=== PATIENT | female | born 1945 | race Caucasian/White ===

== ENCOUNTER 2016-10-14 21:44 | Inpatient (IN) | payer MEDICARE, OTHER ==
[~2016-10-14] VITALS: Ht 152.4 cm; Wt 35.6 kg
[2016-10-14 22:41] LABS: HEMATOCRIT 44.1 % (34.6-47.8); HEMOGLOBIN 14.5 g/dL (11.7-16.4)
[2016-10-14 22:51] LABS: DAU SCREEN DISCLAIMER
[2016-10-14 22:54] LABS: ASPARTATE AMINO TRANSFERASE 14 U/L (15-37); BLOOD UREA NITROGEN 18 mg/dL (7-18)
[2016-10-15] MEDS ORDERED: hydrALAzine 20 MG/ML, 1ML IVPush PRN (01:00)
[2016-10-15] MEDS ORDERED: ACETAMINOPHEN 325 MG TABLET PO PRN (01:00)
[2016-10-15] MEDS: NS + 20MEQ KCL 1,000 ML IV SCH ×2 (04:20→16:01)
[2016-10-15 06:11] LABS: HEMATOCRIT 35.7 % (34.6-47.8); HEMOGLOBIN 11.9 g/dL (11.7-16.4); WHITE BLOOD COUNT 8.2 x10^3/uL (3.4-10)
[2016-10-15 06:15] LABS: BLOOD UREA NITROGEN 16 mg/dL (7-18)
[2016-10-15] MEDS: ENOXAPARIN 40 MG/0.4 ML SQ SCH (07:47)
[2016-10-15 07:52] VITALS: BP 149/79
[2016-10-15 12:48] VITALS: BP 155/73
[2016-10-15 20:04] VITALS: BP 175/89
[2016-10-15 21:00] VITALS: BP 175/88
[2016-10-15 22:34] VITALS: BP 146/84
[2016-10-16 02:47] VITALS: BP 152/83
[2016-10-16 05:36] LABS: HEMATOCRIT 38.5 % (34.6-47.8); HEMOGLOBIN 12.9 g/dL (11.7-16.4)
[2016-10-16 05:41] LABS: BLOOD UREA NITROGEN 12 mg/dL (7-18)
[2016-10-16 07:02] VITALS: BP 155/71
[2016-10-16 09:39] VITALS: BP 166/79
[2016-10-16] MEDS: ENOXAPARIN 40 MG/0.4 ML SQ SCH (09:39)
[2016-10-16 12:15] VITALS: BP 138/80
[2016-10-16 20:13] VITALS: BP 147/76
[2016-10-17 02:30] VITALS: BP 153/76
[2016-10-17 08:12] VITALS: BP 149/64
[2016-10-17] MEDS: ENOXAPARIN 30 MG/0.3 ML SQ SCH ×2 (09:22→22:55)
[2016-10-17 13:09] VITALS: BP 134/83
[2016-10-17 19:35] VITALS: BP 147/69
[2016-10-18 01:24] VITALS: BP 154/70
[2016-10-18 08:05] VITALS: BP 156/77
[2016-10-18 14:02] VITALS: BP 168/74
== END 2016-10-18 14:00 | disposition home or self-care (01) | DRG 682 ==
LOC: ED 23:59 → SUATTDRO 10-15 00:34 → UNDOADMIN 10-15 00:36 → 4NOR 10-15 00:36 → EDIP 10-15 00:36
DX: N17.9 Acute kidney failure, unspecified (principal); G93.40 Encephalopathy, unspecified; E43 Unspecified severe protein-calorie malnutrition; Z68.1 Body mass index [BMI] 19.9 or less, adult; D72.829 Elevated white blood cell count, unspecified; E87.6 Hypokalemia; F03.90 Unspecified dementia, unspecified severity, without behavioral disturbance, psychotic disturbance, mood disturbance, and anxiety; I10 Essential (primary) hypertension; F12.10 Cannabis abuse, uncomplicated; F15.10 Other stimulant abuse, uncomplicated; R74.8 Abnormal levels of other serum enzymes; Z59.0 Homelessness; F19.10 Other psychoactive substance abuse, uncomplicated
CPT/HCPCS: 36415; 70450; 70551; 71010; 80048; 80053; 80307; 81001; 82140; 82607; 82746; 84436; 84443; 85025; 86592; 93005; 99285; J1650; J3480; 92523-GN; J0360